=== PATIENT | female | born 1935 | race Caucasian/White ===

== ENCOUNTER 2017-03-18 06:44 | Day surgery (SDC) | payer MEDICARE, OTHER ==
[2017-03-18] MEDS ORDERED: Sodium Chloride 0.9% 10 ML Syringe FLUSH PRN (08:30)
[2017-03-18] MEDS ORDERED: Lactated Ringers 1,000 ML IV SCH (08:30)
[2017-03-18] MEDS ORDERED: Propofol 200 MG/20 ML SDV IV ONE (10:15)
--- NOTE | 2017-03-18 10:56 | PCM.OPNOTE ---
- General Post-Op/Procedure Note Date of Surgery/Procedure: 03/18/17 Operative Procedure(s): Colonoscopy with Polypectomy Findings: Transverse colon polyps Moderate Sigmoid Diverticulosis Internal hemorrhoids Pre Op Diagnosis: Personal History of Breast and Uterine Cancer Post-Op Diagnosis: Colon Polyp. Diverticulosis. Hemorrhoids Anesthesia Technique: MAC Primary Surgeon: Isra Cameron Pathology: Transverse Colon Polyp Output, Urine Amount: 0 EBL in mLs: 0 Complications: None Condition: Good
[2017-03-18 11:57] VITALS: BP 118/42
--- NOTE | 2017-03-18 18:48 | HP ---
ADMISSION DATE: 03/18/2017 HISTORY OF PRESENT ILLNESS: This 81-year-old female is seen today for colonoscopy. Her last colonoscopy was approximately five years ago. She has not had any recent change in bowel pattern. She does have known history of diverticulosis as well as a personal history of breast cancer. She has a past history of breast and uterine cancer. PAST MEDICAL HISTORY: Her past medical history also includes chronic diagnoses of hypertension and atrial fibrillation. CURRENT MEDICATIONS: Include: 1. Coumadin, which she has not taken for four days. 2. She also takes lisinopril. 3. Hydrochlorothiazide. 4. Diltiazem. 5. Pravachol. 6. Fosamax. 7. Vitamins. SOCIAL HISTORY: She has never smoked. FAMILY HISTORY: Notable for cardiovascular disease in her father. REVIEW OF SYSTEMS: Positive for recent episode of a right arm lymphedema. Otherwise, she has been feeling well with no other significant health-related complaints. PHYSICAL EXAMINATION: VITAL SIGNS: Temperature is 97.9, pulse 70, blood pressure is 121/62. GENERAL: The patient is an adult female. She is in no acute distress. HEENT: Her head is normocephalic. There is no scleral icterus. NECK: No cervical masses. HEART: Is irregular. No murmur is noted. LUNGS: Clear. ABDOMEN: Soft, nontender with no distention or palpable mass. EXTREMITIES: Show no obvious deformity. IMPRESSION: 1. Personal history of breast and uterine cancer. 2. History of diverticulosis. 3. Atrial fibrillation. 4. Hypertension. PLAN: Colonoscopy. Informed consent, I have discussed the proposed colonoscopy with the patient. She understands indications, options, and risks and agrees to proceed. /[id number] THIERRY/HENRIETTAL
--- NOTE | 2017-03-18 18:55 | OR ---
DATE OF OPERATION: 03/18/2017 SURGEON: Isra Cameron MD PREOPERATIVE DIAGNOSES: Personal history of breast and uterine malignancy. POSTOPERATIVE DIAGNOSES: Transverse colon polyp, sigmoid diverticulosis, hemorrhoids. OPERATION PERFORMED: Colonoscopy with polypectomy. INDICATIONS FOR SURGERY: This 81-year-old female has a personal history of breast and uterine cancer. Her last colonoscopy was five years ago. FINDINGS: In the mid transverse colon, the patient had a moderate-sized semi- pedunculated polyp which was 9 mm in size. There was also a very small 1-2 mm polyp in the transverse colon near this other polyp. The patient had a moderate degree of sigmoid diverticulosis but with some angulation of the colon in this area. This did not appear to be acutely inflamed at this time. She also had moderate-sized internal hemorrhoids. The remainder of the colon appeared normal. PROCEDURE IN DETAIL: The patient was taken to the procedure room. She was given intravenous sedation and with her in the left lateral decubitus position, digital rectal exam was performed showing no rectal masses. The Olympus colonoscope was inserted into the rectum. Retroflexed examination of the rectal canal was performed. The scope was then carefully advanced under direct visualization to the midtransverse colon with the above-described polyp was identified. This polyp was removed with a cautery snare and retrieved into a polyp trap. The scope was then carefully advanced under direct visualization through the entire length of the colon until the cecum was reached. Cecal acquisition was confirmed by noting the normal internal cecal anatomy including the appendiceal orifice and ileocecal valve. The light is also noted to transilluminate the abdominal wall in the right lower quadrant. After examining the cecum, the scope was slowly withdrawn sequentially re-examining the colonic segments. In the transverse colon near the area of the original polyp, a very small 1-2 mm polyp was identified and this was destroyed with cautery. The scope was further withdrawn and the examination was completed. After the entire colon and rectum had been fully examined and with no sign of any complication, the scope was removed and the patient was taken from the operating room in satisfactory condition. ESTIMATED BLOOD LOSS: Zero. COMPLICATIONS: None. PROGNOSIS: Good. /[id number] THIERRY/DORA
== END 2017-03-18 12:11 | disposition home or self-care (01) ==
LOC: FB.SDS 06:44
PROVIDERS: ATTEND Surgery
DX: K63.5 Polyp of colon (principal); K57.30 Diverticulosis of large intestine without perforation or abscess without bleeding; K64.8 Other hemorrhoids; I10 Essential (primary) hypertension; I48.2 Chronic atrial fibrillation; E78.5 Hyperlipidemia, unspecified; Z88.1 Allergy status to other antibiotic agents; Z88.8 Allergy status to other drugs, medicaments and biological substances; Z79.2 Long term (current) use of antibiotics; Z79.899 Other long term (current) drug therapy
CPT/HCPCS: 00812; 45385; 88305; J2704; J7120

== ENCOUNTER 2017-05-28 07:13 | Day surgery (SDC) | payer MEDICARE, OTHER ==
[2017-05-28] MEDS: Sodium Chloride 0.9% 10 ML Syringe FLUSH PRN (08:20)
[2017-05-28] MEDS ORDERED: Propofol 200 MG/20 ML SDV IV ONE (09:30)
[2017-05-28 11:36] VITALS: BP 124/56
--- NOTE | 2017-05-29 08:36 | OR ---
DATE OF OPERATION: 05/28/2017 SURGEON: Dany Barnes MD PREOPERATIVE DIAGNOSIS: Cataract, left eye. POSTOPERATIVE DIAGNOSIS: Same. PROCEDURE: Phacoemulsification of cataract left eye with the placement of an Petersen, model Z9002, 25.0 diopter, foldable, posterior chamber intraocular lens. WINDOW SYSTEMS ADMINISTRATOR: None. DESCRIPTION OF PROCEDURE: Peribulbar anesthetic was performed using a mixture of 2% lidocaine with Wydase. The patient was prepped and draped in the usual fashion. A 3 mm fornix based conjunctival flap was performed at the 12 o'clock position. Hemostasis was obtained using diathermy, and a 2.8 mm grooved near clear corneal incision was then made. A stab incision was made into the anterior chamber at the 2:30 position and a second stab wound incision was made underlying the grooved near clear corneal incision. Viscoat was instilled into the anterior chamber, and a continuous tear capsulotomy was performed. Hydrodissection was accomplished with balanced salt solution, and the nucleus was removed in a divide and conquer fashion. The remaining cortical material was removed with the irrigation and aspiration unit. Viscoat was instilled into the anterior chamber, and an Petersen, model Z9002, 25.0 diopter, foldable, posterior chamber intraocular lens was placed into the capsular bag, the haptics being positioned at the 1 and 7 o'clock positions. The residual Viscoat was removed from the anterior chamber and the anterior chamber reformed with balanced salt solution. The wound was checked and noted to be watertight. The conjunctiva was secured in its original position with diathermy. Alphagan and Maxitrol Ointment were then placed into the patient's eye. The patient tolerated the procedure well and it was without complication. Elapsed phacoemulsification time was 39.2 seconds. Postoperative instructions as related to activities as well as medications were reviewed with the patient. The patient was instructed to return to see me on the day following surgery for the first postoperative check. The patient was also instructed to contact me prior to that time if she were to have any problems. ADDENDUM: Because of the patient's borderline pupillary dilation, a mixture of lidocaine, phenylephrine, and balanced salt solution were instilled in the anterior chamber. This helped to provide adequate pupillary dilation throughout the course of the surgery. /[id number] DEG/MODL CC: LEONCIO ALLEN, [facility]
== END 2017-05-28 11:30 | disposition home or self-care (01) ==
LOC: FB.SDS 07:13
PROVIDERS: ATTEND Ophthalmology
DX: H26.9 Unspecified cataract (principal); I48.91 Unspecified atrial fibrillation; I10 Essential (primary) hypertension; E78.5 Hyperlipidemia, unspecified; Z88.1 Allergy status to other antibiotic agents; Z88.8 Allergy status to other drugs, medicaments and biological substances; Z79.01 Long term (current) use of anticoagulants; Z79.899 Other long term (current) drug therapy
CPT/HCPCS: 00142-QZ; J2704; J7050; V2632

== ENCOUNTER 2017-06-25 07:44 | Day surgery (SDC) | payer MEDICARE, OTHER ==
[2017-06-25] MEDS ORDERED: Sodium Chloride 0.9% 10 ML Syringe FLUSH PRN (08:05)
[2017-06-25] MEDS ORDERED: Midazolam 1 MG/ML 2 ML SDV IV ONE (09:30)
[2017-06-25] MEDS ORDERED: Propofol 200 MG/20 ML SDV IV ONE (09:30)
[2017-06-25 11:18] VITALS: BP 109/58
--- NOTE | 2017-06-27 10:52 | OR ---
DATE OF OPERATION: 06/25/2017 SURGEON: Dany Barnes MD PREOPERATIVE DIAGNOSIS: Cataract right eye. POSTOPERATIVE DIAGNOSIS: Same. OPERATION PERFORMED: Phacoemulsification of cataract right eye with placement of an Petersen, model Z9002, 25.5 diopter, foldable, posterior chamber intraocular lens. HYPERBARIC WELDER DIVER: None. DESCRIPTION OF PROCEDURE: Peribulbar anesthetic was performed using a mixture of 2% lidocaine with Wydase. The patient was prepped and draped in the usual fashion. A 3 mm fornix based conjunctival flap was performed at the 12 o'clock position. Hemostasis was obtained using diathermy, and a 2.8 mm grooved near clear corneal incision was then made. A stab incision was made into the anterior chamber at the 2:30 position and a second stab wound incision was made underlying the grooved near clear corneal incision. Viscoat was instilled into the anterior chamber, and a continuous tear capsulotomy was performed. Hydrodissection was accomplished with balanced salt solution, and the nucleus was removed in a divide and conquer fashion. The remaining cortical material was removed with the irrigation and aspiration unit. Viscoat was instilled into the anterior chamber, and an Petersen, model Z9002, 25.5 diopter, foldable, posterior chamber intraocular lens was placed into the capsular bag, the haptics being positioned at the 4 and 10 o'clock positions. The residual Viscoat was removed from the anterior chamber and the anterior chamber reformed with balanced salt solution. The wound was checked and noted to be watertight. The conjunctiva was secured in its original position with diathermy. Alphagan and Maxitrol Ointment were then placed into the patient's eye. The patient tolerated the procedure well and it was without complication. Elapsed phacoemulsification time was 27.2 seconds. Postoperative instructions as related to activities as well as medications were reviewed with the patient. The patient was instructed to return to see me on the day following surgery for the first postoperative check. The patient was also instructed to contact me prior to that time if she were to have any problems. /[id number] DEG/MODL CC: LEONCIO ALLEN, INHALATION THERAPY [employer]ID[employer] [facility]
== END 2017-06-25 10:46 | disposition home or self-care (01) ==
LOC: FB.SDS 07:44
PROVIDERS: ATTEND Ophthalmology
DX: H26.9 Unspecified cataract (principal); I48.2 Chronic atrial fibrillation; I10 Essential (primary) hypertension; E78.5 Hyperlipidemia, unspecified; Z88.1 Allergy status to other antibiotic agents; Z88.8 Allergy status to other drugs, medicaments and biological substances; Z79.01 Long term (current) use of anticoagulants; Z79.899 Other long term (current) drug therapy
CPT/HCPCS: 00142; 66984; J2250; J2704; J7050; V2632